=== PATIENT | female | born 1935 | race Caucasian/White ===

== ENCOUNTER 2021-10-21 13:14 | Emergency (ER) | payer MEDICARE, BC, SELFPAY ==
[2021-10-21] VITALS (13 sets, daily range): BP systolic 121–154; BP diastolic 61–100; PULSE 77–88; TEMP 37.5; O2SAT 91–96; BMI 37.2
--- NOTE | 2021-10-21 13:42 | ED_ITS ---
HPI - General Adult General Chief complaint: Nausea/Vomiting Stated complaint: Vomiting Time Seen by Provider: 10/21/21 13:19 History of Present Illness HPI narrative: This 85-year-old woman comes in by ambulance. She states that symptoms began earlier today where she had a dry cough, some nausea and a vomiting episode, and some generalized weakness and fatigue. She does not report any fevers. Currently she does not have any nausea. She does not report any pain or shortness of breath. Related Data Home Medications Medication Instructions Recorded Confirmed donepezil 10 mg tablet mg 10/21/21 escitalopram oxalate 10 mg tablet mg 10/21/21 hydrochlorothiazide 25 mg tablet mg 10/21/21 losartan 100 mg tablet mg 10/21/21 trazodone 50 mg tablet mg 10/21/21 Allergies Allergy/AdvReac Type Severity Reaction Status Date / Time No Known Drug Allergies Allergy Verified 10/21/21 13:30 Review of Systems Status of ROS: Reports: 10 or more systems reviewed and unremarkable except as noted in History and below Narrative: Constitutional: No fevers, no weight gain or loss. Eyes: No discharge. No vision changes. HENT: No congestion, no sore throat, no ear pain. Cardiovascular: No chest pain, no palpitations. Respiratory: No shortness of breath, no wheezes. She reports a dry cough. Gastrointestinal: No abdominal pain. Nausea with vomiting episode. No diarrhea. Genitourinary: No dysuria, no hematuria. Musculoskeletal: Normal range of motion. Skin: No rashes, no pruritis. Neurological: No dizziness, weakness, sensory change, speech change. Endo/Heme/Allergies: No bruising or bleeding. No polydipsia. Pysch: no suicidality, no anxiety, no insomnia. All other systems reviewed and are negative. [facility] Social History Smoking Status: Former smoker Do you use any of these nicotine containing products: None Second hand tobacco smoke exposure: No How often do you have a drink containing alcohol: never How often do you have six or more drinks on one occasion: Never AUDIT-C Alcohol total score: 0 Non-prescribed substance use: denies use Exam Narrative: Exam Narrative: Constitutional: Well-developed, well-nourished, no acute distress. HEENT: Normocephalic, atraumatic. Neck: Normal range of motion. Nontender. Supple. Heart: Regular. No murmurs. Normal rate. Intact distal pulses. Lungs: Clear to auscultation. No chest discomfort. No wheezes, rhonchi, or rales. Abdomen: Normal bowel sounds. Nontender. No rebound tenderness. Genitalia: Deferred. Back: No midline tenderness. Normal range of motion. Extremities: Normal range of motion. No injury. Skin: Intact. No rash. Warm. No erythema or pallor. Neurologic: No altered sensation. No weakness. Alert and oriented. Psychiatric: No suicidality. No anxiety or depression. No insomnia. Nursing notes and vitals signs are reviewed. Const: Vital Signs, click to edit/add: Vital Signs - 24 hr 10/21/21 13:26 10/21/21 13:24 10/21/21 13:25 Temperature 99.5 F Pulse Rate 77 Pulse Rate [Right Pulse Oximeter] 78 Blood Pressure 154/73 H Blood Pressure [Le ft Upper Arm] 154/73 H Pulse Oximetry 95 93 Oxygen Delivery Me thod Room Air 10/21/21 13:30 10/21/21 13:32 10/21/21 13:33 Temperature Pulse Rate 80 86 82 Pulse Rate [Right Pulse Oximeter] Blood Pressure 133/65 Blood Pressure [Le ft Upper Arm] Pulse Oximetry 93 94 91 Oxygen Delivery Me thod 10/21/21 14:00 10/21/21 14:02 10/21/21 14:03 Temperature Pulse Rate 83 83 83 Pulse Rate [Right Pulse Oximeter] Blood Pressure 142/64 H Blood Pressure [Le ft Upper Arm] Pulse Oximetry 92 95 93 Oxygen Delivery Me thod 10/21/21 14:32 10/21/21 14:33 Temperature Pulse Rate 84 83 Pulse Rate [Right Pulse Oximeter] Blood Pressure 133/61 Blood Pressure [Le ft Upper Arm] Pulse Oximetry 96 93 Oxygen Delivery Me thod Course Vital Signs Vital signs: Initial Vital Signs Blood Pressure 154/73 H 10/21/21 13:24 Blood Pressure Mean 100 10/21/21 13:24 Vital Signs Blood Pressure 154/73 H 10/21/21 13:24 Temperature 99.5 F 10/21/21 13:26 Pulse Rate 83 10/21/21 14:33 Blood Pressure 133/61 10/21/21 14:32 Pulse Oximetry 93 10/21/21 14:33 Oxygen Delivery Method 10/21/21 13:26 Medical Decision Making MDM Narrative Medical decision making narrative: This patient comes in by ambulance because of a nausea and vomiting episode. She states that she feels better. Her vital signs have remained normal. She h ad a nasal swab which returned negative results for COVID and influenza. Additionally lab results also returned with reassuring findings. Her white count is just slightly elevated. The patient states that she feels back to normal and feels okay to return home. Her daughters with her and will assist in that process. Lab Data Labs: Lab Results 10/21/21 10/21/21 10/21/21 Range/Units 13:25 13:50 13:51 WBC 13.29 H (4.50-11.00) K/uL RBC 3.81 L (4.00-5.20) m/uL Hgb 11.2 L (12.0-16.0) gm/dL Hct 35.6 (33.0-51.0) % MCV 93 (80-100) fL MCH 29 (26-34) pg MCHC 32 (32-36) gm/dL RDW Coeff of Anthony 13.3 (11.5-15.5) % Plt Count 284 (140-440) K/uL Neut % (Auto) 91.2 H (42.0-72.0) % Lymph % (Auto) 4.3 L (20-44) % Rooks % (Auto) 3.7 (0.0-11.0) % Eos % (Auto) 0.3 (0.0-7.0) % Baso % (Auto) 0.3 (0.0-3.0) % Neut # (Auto) 12.10 H (1.7-7.0) K/uL Lymph # (Auto) 0.60 L (0.90-2.90) K/uL Rooks # (Auto) 0.50 (0.00-0.90) K/UL Eos # (Auto) 0.00 (0.00-0.50) K/uL Baso # (Auto) 0.00 (0.00-0.30) K/uL Abs Immat Gran (auto) 0.02 (0.00-0.30) K/uL Sodium (135-149) mmol/L Potassium (3.6-5.1) mmol/L Chloride (96-114) mmol/L Carbon Dioxide (20-32) mmol/L BUN (7-30) mg/dL Creatinine (0.5-1.5) mg/dL Estimated Creat Clear Estimated GFR ml/min Glucose (60-115) mg/dL Calcium (8.4-10.6) mg/dL SARS-CoV-2 (PCR) Negative SARS-CoV-2 (Negative) Influenza Type A (PCR) Negative PCR FLU A (Negative) Influenza Type B (PCR) Negative PCR FLU B (Negative) POC Troponin I 0.00 L (0.01-0.04) ng/ml 10/21/21 Range/Units 13:51 WBC (4.50-11.00) K/uL RBC (4.00-5.20) m/uL Hgb (12.0-16.0) gm/dL Hct (33.0-51.0) % MCV (80-100) fL MCH (26-34) pg MCHC (32-36) gm/dL RDW Coeff of Anthony (11.5-15.5) % Plt Count (140-440) K/uL Neut % (Auto) (42.0-72.0) % Lymph % (Auto) (20-44) % Rooks % (Auto) (0.0-11.0) % Eos % (Auto) (0.0-7.0) % Baso % (Auto) (0.0-3.0) % Neut # (Auto) (1.7-7.0) K/uL Lymph # (Auto) (0.90-2.90) K/uL Rooks # (Auto) (0.00-0.90) K/UL Eos # (Auto) (0.00-0.50) K/uL Baso # (Auto) (0.00-0.30) K/uL Abs Immat Gran (auto) (0.00-0.30) K/uL Sodium 135 (135-149) mmol/L Potassium 3.7 (3.6-5.1) mmol/L Chloride 101 (96-114) mmol/L Carbon Dioxide 29 (20-32) mmol/L BUN 24 (7-30) mg/dL Creatinine 0.7 (0.5-1.5) mg/dL Estimated Creat Clear 34.02 Estimated GFR 85 ml/min Glucose 121 H (60-115) mg/dL Calcium 8.6 (8.4-10.6) mg/dL SARS-CoV-2 (PCR) (Negative) Influenza Type A (PCR) (Negative) Influenza Type B (PCR) (Negative) POC Troponin I (0.01-0.04) ng/ml ECG Data Attestation: I personally reviewed and interpreted this ECG as follows: Interpretation: Normal sinus rhythm. Rate is 77 beats per minute. There are no ST or T-wave abnormalities. Discharge Plan Discharge Clinical Impression: Gastroenteritis Patient Disposition: Home, Self-Care Condition: Improved Additional Instructions: Take liquids and increase diet as tolerated. Follow up with MD or return if recurrent or worsening symptoms happen. Prescriptions: No Action trazodone 50 mg tablet donepezil 10 mg tablet hydrochlorothiazide 25 mg tablet losartan 100 mg tablet escitalopram oxalate 10 mg tablet Follow Up/Referrals: Provider,Not a Local [Primary Care Provider] - Stand Alone Forms: [employer] Info Instructions
[2021-10-21 13:57] LABS: Basophils Percent Auto 0.3 % (0.0-3.0); Eosinophils Percent Auto 0.3 % (0.0-7.0); Hematocrit 35.6 % (33.0-51.0); Hemoglobin* 11.2 gm/dL (12.0-16.0); Immature Granulocytes Abs Auto 0.02 K/uL (0.00-0.30); Lymphocytes Percent Auto 4.3 % (20-44); Mean Corpuscular HGB Conc 32 gm/dL (32-36); Mean Corpuscular Hemoglobin 29 pg (26-34); Mean Corpuscular Volume 93 fL (80-100); Monocytes Percent Auto 3.7 % (0.0-11.0); Neutrophils Percent Auto 91.2 % (42.0-72.0); Platelet Count* 284 K/uL (140-440); RDW Coefficient of Variation % 13.3 % (11.5-15.5); Red Blood Count 3.81 m/uL (4.00-5.20); White Blood Count* 13.29 K/uL (4.50-11.00)
[2021-10-21 14:02] LABS: Slide Review Reflex No
[2021-10-21 14:09] LABS: PCR FLU A Negative PCR FLU A (Negative); PCR FLU B Negative PCR FLU B (Negative)
[2021-10-21 14:13] LABS: SARS PCR* Negative SARS-CoV-2 (Negative)
[2021-10-21 14:14] LABS: Chloride* 101 mmol/L (96-114)
[2021-10-21 14:15] LABS: Potassium* 3.7 mmol/L (3.6-5.1); Sodium* 135 mmol/L (135-149)
[2021-10-21 14:17] LABS: Carbon Dioxide* 29 mmol/L (20-32); Creatinine* 0.7 mg/dL (0.5-1.5); Est. Creatinine Clearance* 34.02; Estimated Glomerular Filt Rate 85 ml/min
[2021-10-21 14:18] LABS: Blood Urea Nitrogen* 24 mg/dL (7-30); Calcium* 8.6 mg/dL (8.4-10.6); Glucose* 121 mg/dL (60-115)
--- NOTE | 2021-10-21 15:21 | ED.NURSE ---
Prior to discharge, pt daughter requesting a trash bin to dispose of pt's soiled clothes. Clean shoes removed from clothing bag and given to pt daughter. Remainder of clothes disposed of in biohazard bin at pt daughter's request.
== END 2021-10-21 15:22 | disposition home or self-care (01) ==
PROVIDERS: Emergency Provider Emergency Medicine Emergency Medical Services
DX: K52.9 Noninfective gastroenteritis and colitis, unspecified (principal)
CPT/HCPCS: 36415; 80048; 84484; 85025; 87631; 93005; 99283; 99284